=== PATIENT | female | born 1965 | race Caucasian/White ===

== ENCOUNTER 2017-08-28 18:26 | Day surgery (SDC) | payer MEDICAID ==
[~2017-08-28] VITALS: Ht 170.2 cm; Wt 95.5 kg
[2017-08-28 19:09] LABS: BASOPHILS 0.4 % (0-2); EOSINOPHILS 0.3 % (0-7); IMMATURE GRANULOCYTES 0.3 % (0-5); LYMPHOCYTES 12.8 % (15-50); MCHC 28.3 g/dL (31.0-37.0); MCV 69.7 fL (80.0-100.0); MONOCYTES 7.4 % (2-11); NEUTROPHILS 78.8 % (40-80); PLATELET COUNT 497 10x3/uL (130-400); RBC 2.64 10x6/uL (4.00-5.40); RDW 17.6 % (11.5-14.5)
[2017-08-28 19:18] LABS: HEMATOCRIT 18.4 % (36.0-48.0); HEMOGLOBIN 5.2 g/dL (12-16); MCH 19.7 pg (26.0-34.0)
[2017-08-28 20:00] LABS: ALBUMIN 3.5 g/dL (3.4-5.0); ANION GAP 16.3 mmol/L (8-16); BILIRUBIN - TOTAL 0.12 mg/dL (0.2-1.3); CALCIUM 9.1 mg/dL (8.5-10.1); CARBON DIOXIDE 22.2 mmol/L (21.0-32.0); CREATININE - SERUM 0.9 mg/dL (0.6-1.3); POTASSIUM - SERUM 3.5 mmol/L (3.5-5.1); PROTEIN - SERUM 6.6 g/dL (6.4-8.2)
[2017-08-28 23:00] VITALS: BP 120/69
[2017-08-28] MEDS ORDERED: EXCEDRIN CAPLET1 TAB PO (23:24)
--- NOTE | 2017-08-28 23:27 | NUR ---
PERIPAD APPLIED IN PACU. SCANT DISCHARGE NOTED. WILL CONTINUE TO MONITOR.
[2017-08-28 23:54] VITALS: Ht 170.2 cm; Wt 95.5 kg
[2017-08-29 08:14] LABS: HEMOGLOBIN 8.1 g/dL (12-16)
[2017-08-29 08:15] LABS: HEMATOCRIT 25.2 % (36.0-48.0)
[2017-08-29] MEDS ORDERED: PONSTEL250 MG PO (08:46)
[2017-08-29] MEDS ORDERED: TRANEXAMIC ACI650 MG PO (08:49)
[2017-08-29 09:02] VITALS: BP 101/53
--- NOTE | 2017-08-29 11:22 | NUR ---
DENIES NEEDS AT PRESENT.CALL LIGHT IN REACH
[2017-08-29 11:49] VITALS: BP 104/54
--- NOTE | 2017-08-29 12:10 | DS ---
PATIENT:YULISA MANN :67 MEDICAL RECORD: [id number] DISCHARGE SUMMARY ADMISSION DATE: 08/28/17 DISCHARGE DATE: DATE OF ADMISSION: 08/28/2017 DATE OF DISCHARGE: 08/29/2017 ADMISSION DIAGNOSES: 1. Menorrhagia. 2. Anemia. DISCHARGE DIAGNOSES: 1. Menorrhagia. 2. Anemia. PROCEDURE PERFORMED: Dilation and curettage. ATTENDING DOCTOR: Lynda Galvan MD HISTORY OF PRESENT ILLNESS: See the H&P in the chart. SUMMARY OF HOSPITALIZATION: The patient was admitted in the evening of the and underwent urgent D&C for menorrhagia and anemia. The pathology is pending at this time. The patient is doing well this morning, not reported any heavy bleeding. The patient has received 4 units of blood and will be discharged to home after hematocrit is drawn. The patient has been given bleeding and pain precautions. Her discharge medications will include Ponstel 1 capsule every 6 hours p.r.n. for dysmenorrhea and Lysteda 650 mg tablets 2 every 8 hours at the onset of her period for 3-5 days. She has been asked to follow up at [facility] within the next 2 weeks. TRANSINT:[id number] Voice Confirmation ID: [id number] DOCUMENT ID: [id number] LYNDA GALVAN MD at 1210 CC: [id number] DICTATION DATE: 08/29/17 0546 [employer] PRINCIPAL: 08/29/[address] [facility] [address] [place] [address]
--- NOTE | 2017-08-29 12:10 | OP ---
PATIENT NAME: YULISA MANN MEDICAL RECORD: [id number] :67 LOCATION:D.[facility] ADMISSION DATE: SURGEON: LYNDA AVENDAÑO MD DATE OF OPERATION: 08/28/2017 PREOPERATIVE DIAGNOSES: 1. Menorrhagia. 2. Anemia. POSTOPERATIVE DIAGNOSES: 1. Menorrhagia. 2. Anemia. PROCEDURES: 1. Exam under anesthesia. 2. Dilation and curettage. SURGEON: Lynda Avendaño MD. ANESTHESIA: General anesthetic. FINDINGS: Uterus is normal in size and contour. It sounds to 8 cm. Lush endometrium with polypoid tissue removed at the time of curettage, vaginal vault and cervix is unremarkable. SPECIMENS REMOVED: Endometrial curettings. SPECIMEN DISPOSITION: Pathology. ESTIMATED BLOOD LOSS: Less than or equal to 100 at the time of the procedure. FLUIDS: 1. 500 mL of normal saline. 2. Approximately 100 cc of a unit of blood. URINARY OUTPUT: Quantity sufficient void prior to this procedure. COMPLICATIONS: None. DRAINS: None. INDICATIONS: The patient is a 51-year-old female who reports heavy vaginal bleeding beginning in approximately 48 hours ago. The patient reports going through several tampons in the last 48 hours. Upon presentation to the Emergency Room, she was found to be tachycardic with a hemoglobin of 5.2. DESCRIPTION OF PROCEDURE: After informed consent was assured, the patient was taken to the operating room where anesthetic was obtained without difficulty. The patient is now prepped and draped in the usual sterile fashion. The speculum was introduced in the vagina and the cervix was visualized, grasped with a single tooth tenaculum and dilated. Uterine sounds passed easily to the fundus and then 8 cm depth is noted. Sharp curettage was now performed until good cry was obtained throughout. Copious amounts of tissue returned. At the close of this procedure, minimal bleeding was noted from the cervical os. OPERATIVE REPORT [id number] YULISA MANN Sponge, lap, and needle counts correct times 2. The patient was awakened and went to the recovery area in stable condition. The patient will be receiving 2 more units of packed red blood cells for a total of 4 prior to discharge. TRANSINT:[id number] Voice Confirmation ID: [id number] DOCUMENT ID: [id number] LYNDA AVENDAÑO MD at 1210 CC: [id number] DICTATION DATE: 08/28/172138 MANAGER BACKGROUND: 08/28/172231 REG [facility] [address] [place] [id number]
--- NOTE | 2017-08-29 14:20 | NUR ---
IV REMOVED WITH NO COMPLICATIONS. MEDICATIONS SENT TO PHARMACY. PATIENT EXPRESSED UNDERSTANDING OF DISCHARGE INSTRUCTIONS. PATIENT DISCHARGED TO HOME VIA WHEELCHAIR.
== END 2017-08-29 14:26 | disposition home or self-care (01) ==
LOC: D.OPS 18:26 → D.ER 18:26 → EDSTATUS 20:00 → D.MS 22:42 → D.OPS 08-29 14:26
PROVIDERS: Emergency Medicine; Obstetrics & Gynecology; Physician Assistant Medical
DX: N92.0 Excessive and frequent menstruation with regular cycle (principal); D64.9 Anemia, unspecified; F17.200 Nicotine dependence, unspecified, uncomplicated; J44.9 Chronic obstructive pulmonary disease, unspecified; K21.9 Gastro-esophageal reflux disease without esophagitis; Z01.812 Encounter for preprocedural laboratory examination

== ENCOUNTER → 2019-10-05 13:03 | Outpatient (CLI) | payer MEDICAID ==
[2017-08-28 23:54] VITALS: BMI 32.9
[~2019-10-05 13:03] MED LIST: EXCEDRIN CAPLET1 TAB PO; PONSTEL250 MG PO; TRANEXAMIC ACI650 MG PO
== END | disposition home or self-care (01) ==
LOC: D.US 13:00
PROVIDERS: ATTEND Surgery
DX: N63.11 Unspecified lump in the right breast, upper outer quadrant (principal)

== ENCOUNTER 2020-01-24 09:00 | Outpatient (CLI) | payer OTHER ==
[2017-08-28 23:54] VITALS: BMI 32.9
== END 2020-01-24 10:00 | disposition home or self-care (01) ==
LOC: D.MAMMO 09:00
PROVIDERS: ATTEND Surgery
DX: C50.411 Malignant neoplasm of upper-outer quadrant of right female breast (principal)

== ENCOUNTER → 2020-02-02 12:42 | Outpatient (CLI) | payer OTHER ==
[2017-08-28 23:54] VITALS: BMI 32.9
== END | disposition home or self-care (01) ==
LOC: D.US 12:42
PROVIDERS: ATTEND Surgery
DX: N63.12 Unspecified lump in the right breast, upper inner quadrant (principal)

== ENCOUNTER → 2020-06-20 11:38 | Outpatient (CLI) | payer OTHER ==
[2017-08-28 23:54] VITALS: BMI 32.9
== END | disposition home or self-care (01) ==
LOC: D.US 11:30
PROVIDERS: ATTEND Internal Medicine Hematology & Oncology
DX: C50.411 Malignant neoplasm of upper-outer quadrant of right female breast (principal); E04.1 Nontoxic single thyroid nodule

== ENCOUNTER → 2020-12-24 08:05 | Outpatient (CLI) | payer OTHER ==
[2017-08-28 23:54] VITALS: BMI 32.9
== END | disposition home or self-care (01) ==
LOC: D.US 08:05
PROVIDERS: ATTEND Internal Medicine Hematology & Oncology
DX: C50.411 Malignant neoplasm of upper-outer quadrant of right female breast (principal); E04.1 Nontoxic single thyroid nodule

== ENCOUNTER 2021-02-11 07:31 | Day surgery (SDC) | payer OTHER ==
[~2021-02-11] VITALS: Ht 170.2 cm; Wt 86.8 kg
[2021-02-11 07:56] LABS: BASOPHILS 1.1 % (0-2); EOSINOPHILS 2.8 % (0-7); HEMATOCRIT 46.3 % (36.0-48.0); HEMOGLOBIN 15.3 g/dL (12-16); LYMPHOCYTES 28.4 % (15-50); MCH 30.5 pg (26.0-34.0); MCV 92.4 fL (80.0-100.0); MONOCYTES 7.2 % (2-11); NEUTROPHILS 60.5 % (40-80); RBC 5.01 10x6/uL (4.00-5.40); RDW 13.2 % (11.5-14.5); WBC 6.7 10x3/uL (4.8-10.8)
[2021-02-11 08:11] LABS: PLATELET COUNT 277 10x3/uL (130-400)
[2021-02-11] MEDS ORDERED: VOLTAREN75 MG ×2 (10:21→10:23)
[2021-02-11] MEDS ORDERED: TAMOXIFEN CITRA20 MG (10:23)
[2021-02-11] MEDS ORDERED: ALBUTEROL SULF8.5 GM ×2 (10:23→10:24)
[2021-02-11] MEDS ORDERED: MYCOLOG CREAM15 GM (10:24)
[2021-02-11] MEDS ORDERED: TAMOXIFEN CITRA20 MG PO (10:26)
[2021-02-11 10:28] VITALS: Ht 170.2 cm; Wt 86.8 kg
--- NOTE | 2021-02-11 12:13 | NUR ---
1201 ASSISSTED UP TO BR, VOIDS QS. AMBULATED WITHOUT PROBLEMS, VOICED READINESS TO BE RELEASED.
--- NOTE | 2021-02-11 12:30 | NUR ---
1220 IV DC'D WITH CATH INTACT.
--- NOTE | 2021-02-13 09:22 | OP ---
PATIENT NAME: YULISA MANN MEDICAL RECORD: [id number] :67 LOCATION:D.OPS ADMISSION DATE: SURGEON: FÉLIX RAMOS MD DATE OF OPERATION: 02/11/2021 PREOPERATIVE DIAGNOSIS: Hematochezia. POSTOPERATIVE DIAGNOSES: 1. Hematochezia with 4 colon polyps. These were all sessile polyps ranging in size from 5 mm to 1.0 cm. One of these polyps was a flat polyp. 2. Inadequate colonic prep. 3. Bleeding is likely due to internal hemorrhoidal bleeding. PROCEDURE: 1. Total colonoscopy to cecum. 2. Hot biopsy forceps polypectomy x5. SURGEON: Félix Ramos MD FAMILY INTERVENTION SPECIALIST: None. BLOOD LOSS: Minimal. ANESTHESIA: IV sedation. COMPLICATIONS: None. The risks, possible complications, and alternatives to the procedure were explained to the patient. She elected to proceed. ENDOSCOPIC COURSE: The patient was conveyed to the endoscopy suite electively on 02/11/2021. IV sedation was induced by the anesthesia staff. The patient was placed in the Samano position. Digital rectal examination was performed. A colonoscope was inserted through the anus. It was easily advanced to the cecum. The prep was inadequate. I slowly withdrew the endoscope. I irrigated and aspirated extensively. I dragged the folds. The pullback was greater than 40-minute pullback. Four polyps were removed utilizing the hot biopsy forceps polypectomy technique. Retroflexion view was obtained in the rectum. I then unretroflexed the scope and removed under direct vision. I will see the patient in my office in 2 to 3 weeks to review the results of the biopsies. I will plan for her next surveillance colonoscopy to take place in 1 year. TRANSINT:[id number] Voice Confirmation ID: [id number] DOCUMENT ID: [id number] FÉLIX RAMOS MD at 0922 CC: ESTELLE ORR MD [id number] DICTATION DATE: 02/11/21 1141 TEXTBOOK ASSOCIATE: 02/11/21 2146 [facility] 02/11/21 [facility] [address] [place] [place] [id number]
== END 2021-02-11 12:30 | disposition home or self-care (01) ==
LOC: D.OPS 07:31
PROVIDERS: Anesthesiology; ATTEND Surgery
DX: K92.1 Melena (principal); K63.5 Polyp of colon; K62.5 Hemorrhage of anus and rectum; K64.4 Residual hemorrhoidal skin tags; J44.9 Chronic obstructive pulmonary disease, unspecified; M19.90 Unspecified osteoarthritis, unspecified site; F17.200 Nicotine dependence, unspecified, uncomplicated